=== PATIENT | female | born 1960 | race Caucasian/White ===

== ENCOUNTER → 2020-05-08 | Outpatient (CLI) | payer OTHER ==
--- NOTE | 2020-05-09 14:29 | MM ---
Reason for exam: screening (asymptomatic). Last mammogram was performed 4 years and 4 months ago. History: Patient is postmenopausal. Family history of premenopausal breast cancer in mother. Benign ultrasound-guided core biopsy of the left breast, December 15, 2001. Core biopsy of the left breast. Physical Findings: A clinical breast exam by your physician is recommended on an annual basis and results should be correlated with mammographic findings. MG Screening Mammo w CAD Bilateral CC and MLO view(s) were taken. Prior study comparison: January 20, 2016, bilateral MG screening mammo w CAD. April 23, 2013, bilateral digital screening mammo w/CAD. The breast tissue is extremely dense which could obscure a lesion on mammography. There is no discrete abnormality. No significant changes when compared with prior studies. ASSESSMENT: Negative, BI-RAD 1 RECOMMENDATION: Routine screening mammogram of both breasts in 1 year.
== END | disposition home or self-care (01) ==
LOC: RADMAMWWP 10:12
PROVIDERS: ATTEND Family Medicine
DX: Z12.31 Encounter for screening mammogram for malignant neoplasm of breast (principal)
CPT/HCPCS: 77067

== ENCOUNTER → 2023-02-09 | Outpatient (CLI) | payer BC ==
--- NOTE | 2023-02-09 18:41 | BD ---
EXAMINATION TYPE: Axial Bone Density DATE OF EXAM: 02/09/2023 CLINICAL HISTORY: 62 years old Female. ICD-10 CODE: Z13.820 SCREEN FOR OSTEOPOROSIS Height: 5 ft 7 1/2 in Weight: FRAX RISK QUESTIONS: Alcohol (3 or more units per day): no Family History (Parent hip fracture): no Glucocorticoids (More than 3mos): no (Ex: prednisone, prednisolone, methylprednisolone, dexamethasone, and hydrocortisone). History of Fracture in Adulthood: no Secondary Osteoporosis: 1. Type 1 Diabetes: no 2. Hyperthyroidism: no 3. Menopause before 45: no 4. Malnutrition: no 5. Chronic liver disease: no Rheumatoid Arthritis: no Current Tobacco Use: no RISK FACTORS HISTORY OF: Surgery to Spine/Hip(right/left)/Wrist (right/left): no Family History of Osteoporosis: no Active: yes Diet low in dairy products/other sources of calcium: no Postmenopausal woman: yes Take estrogen and/or progesterone medications: no Lost more than 2 inches in height since high school: Frequent falls: no Poor Health: no Hyperparathyroidism: no Adrenal Insufficiency: chronic hematuria MEDICATIONS: Additional Medications: none Additional History: EXAM MEASUREMENTS: Bone mineral densitometry was performed using the [employer]. Bone mineral density as measured about the Lumbar spine is: ----- L1-L4(G/cm2): 1.443 T Score Values are as follows: ----- L1: 1.0 ----- L2: 2.0 ----- L3: 3.1 ----- L4: 2.4 ----- L1-L4: 2.2 Z Score Values are as follows: ----- L1: 2.4 ----- L2: 3.4 ----- L3: 4.5 ----- L4: 3.8 ----- L1-L4: 3.6 baseline Bone mineral density about the R hip (g/cm2): 1.156 Bone mineral density about the L hip (g/cm2): 1.044 T Score values are as follows: -----R Neck: 0.8 -----L Neck: 0.0 -----R Total: 0.4 -----L Total: -0.4 Z Score values are as follows: -----R Neck: 2.2 -----L Neck: 1.4 -----R Total: 1.5 -----L Total: 0.7 baseline FRAX%s: The graph provided illustrates a 6.2 % chance for a major osteoporotic fx and a 0.2 % chance for the hips probability for fx in 10 years time. IMPRESSION: Normal (Values between +1 and -1 indicate normal bone mass). Consider repeating this study in 5 year s or sooner if there is some new clinical indication. NOTE: T-SCORE=SD OF THE YOUNG ADULT MEAN.
--- NOTE | 2023-02-10 06:43 | MM ---
Reason for Exam: Screening (asymptomatic). Last mammogram was performed 2 year(s) and 10 month(s) ago. Patient History: Menarche at age 10. Postmenopausal. Core Biopsy on the Left side. 12/15/2001, Benign Ultrasound-Guided Core Biopsy on the left side. Mother had breast cancer. Risk Values: Denise 5 year model risk: 4.5%. NCI Lifetime model risk: 17.1%. Prior Study Comparison: 04/23/2013 Bilateral Screening Mammogram, [facility]. 01/20/2016 Bilateral Screening Mammogram, [facility]. 05/08/2020 Bilateral Screening Mammogram, [facility]. Tissue Density: The breast tissue is heterogeneously dense. This may lower the sensitivity of mammography. Findings: Analyzed By CAD. There is no suspicious group of microcalcifications or new suspicious mass in either breast. Overall Assessment: Negative, BI-RAD 1 Management: Screening Mammogram of both breasts in 1 year. Some advised bilateral breast ultrasound surveillance in patients with background dense tissue. Patient should continue monthly self-breast exams. A clinical breast exam by your physician is recommended on an annual basis. This exam should not preclude additional follow-up of suspicious palpable abnormalities. Note on Denise scores and lifetime risk: 1. A Denise score greater than 3% is considered moderate risk. If this is the case, consider specialist referral to assess eligibility for a risk reducing agent. 2. If overall lifetime risk for the development of breast cancer is 20% or higher, the patient may qualify for future screening with alternating mammogram and breast MRI. Electronically signed and approved by: Rudolph Arias M.D.
== END | disposition home or self-care (01) ==
LOC: RADMAMWWP 07:39
PROVIDERS: ATTEND Family Medicine
DX: Z12.31 Encounter for screening mammogram for malignant neoplasm of breast (principal); Z13.820 Encounter for screening for osteoporosis; Z78.0 Asymptomatic menopausal state; Z80.3 Family history of malignant neoplasm of breast
CPT/HCPCS: 77063; 77067; 77080

== ENCOUNTER → 2024-01-16 | Outpatient (CLI) | payer MEDICARE, OTHER ==
--- NOTE | 2024-01-16 11:07 | MR ---
EXAMINATION TYPE: MR lumbar spine wo con DATE OF EXAM: 01/16/2024 COMPARISON: NONE HISTORY: Left groin pain into left leg and toes TECHNIQUE: T1 and T2 axial and sagittal images of the lumbar spine are submitted. FINDINGS: There is no abnormal signal seen within the visualized spinal cord or paraspinal soft tissu es. Multiple gallstones. Tiny Tarlov cyst at S2 level. At L1-2 there is mild disc desiccation and degenerative disc disease. Mild hypertrophy of the facet j oints. No disc herniation or canal stenosis. No foraminal or At L2-3 there is mild circumferential disc bulging. Mild disc desiccation and degenerative disc disea se. Mild hypertrophy of the facet joints. Disc bulging is slightly greater laterally to lie mild left foraminal approach. At L3-4 there is a moderate to severe degenerative disc disease with more advanced facet arthropathy greater on the left. Neural foramina is patent and the right and there is moderate encroachment on th e left. Mild circumferential disc bulging greater laterally to the left. No discrete herniation. At L4-5 there is mild disc desiccation and facet arthropathy. No canal stenosis or focal herniation. Neural foramina patent bilaterally. At L5-S1 there is mild disc desiccation and facet arthropathy. No canal stenosis or focal herniation. Neural foramina patent bilaterally. IMPRESSION: 1. Scoliosis with multilevel degenerative disc disease most marked at levels L3-L4. 2. No discrete herniation or canal stenosis. Mild left foraminal encroachment at L2-3 and L3-4 due to circumferential disc bulging greater laterally to the left. Facet arthropathy contributes to foramin al encroachment. 3. Cholelithiasis.
== END | disposition home or self-care (01) ==
LOC: RADMRIMAIN 09:13
PROVIDERS: ATTEND Family Medicine
DX: M51.36 Other intervertebral disc degeneration, lumbar region (principal); M47.816 Spondylosis without myelopathy or radiculopathy, lumbar region; K80.20 Calculus of gallbladder without cholecystitis without obstruction; M41.9 Scoliosis, unspecified
CPT/HCPCS: 72148

== ENCOUNTER → 2024-01-17 | Outpatient (CLI) | payer MEDICARE, OTHER ==
--- NOTE | 2024-01-17 19:03 | US ---
EXAMINATION TYPE: US groin LT DATE OF EXAM: 01/17/2024 COMPARISON: NONE CLINICAL INDICATION: Female, 63 years old with history of R10.2 PELVI PAIN; pain left groin. TECHNIQUE: Grayscale imaging in the left groin. FINDINGS: Scanned area of pain no abnormalities seen. No organizing fluid collection or mass. No lym phadenopathy identified. IMPRESSION: No abnormality in the left groin.
--- NOTE | 2024-01-17 19:12 | US ---
EXAMINATION TYPE: US pelvis complete transvag DATE OF EXAM: 01/17/2024 COMPARISON: NONE CLINICAL INDICATION: Female, 63 years old with history of R10.2 PELVIC PAIN; pain TECHNIQUE: Transvaginal (TV) and Transabdominal (TA) . Transabdominal sonographic images of the pel vis were acquired. Transvaginal sonographic images were medically necessary to better assess the fol lowing anatomy: EXAM MEASUREMENTS: Uterus: 6.0 x 2.4 x 4.4 cm Endometrial Stripe: 0.4 cm Right Ovary: 4.7 x 2.0 x 2.5 cm Left Ovary: 3.2 x 1.7 x 3.0 cm 1. Uterus: Anteverted wnl 2. Endometrium: wnl 3. Right Ovary: Multiple follicles seen 4. Left Ovary: Multiple follicles seen. 5. Bilateral Adnexa: wnl 6. Posterior cul-de-sac: wnl IMPRESSION: 1. No evidence for acute process. 2. Endometrium within normal limits for thickness.
== END | disposition home or self-care (01) ==
LOC: RADUSWWP 12:20
PROVIDERS: ATTEND Family Medicine
DX: R10.2 Pelvic and perineal pain (principal); M54.16 Radiculopathy, lumbar region
CPT/HCPCS: 76830; 76856

== ENCOUNTER → 2024-03-12 | Outpatient (CLI) | payer MEDICARE, OTHER ==
--- NOTE | 2024-03-12 18:59 | MM ---
Reason for Exam: Screening (asymptomatic). Last mammogram was performed 1 year(s) and 1 month(s) ago. Patient History: Menarche at age 10. Postmenopausal. Core Biopsy on the Left side. 12/15/2001, Benign Ultrasound-Guided Core Biopsy on the left side. Mother had breast cancer. Risk Values: Denise 5 year model risk: 4.6%. NCI Lifetime model risk: 16.5%. Prior Study Comparison: 01/20/2016 Bilateral Screening Mammogram, [facility]. 05/08/2020 Bilateral Screening Mammogram, [facility]. 02/09/2023 Bilateral MG 3D screening mammo w/cad, [facility]. Tissue Density: The breasts are extremely dense, which lowers the sensitivity of mammography. Findings: Analyzed By CAD. Possible obscured nodularity superior left MLO view middle depth for which further evaluation is recommended. Otherwise, no significant change. Overall Assessment: Incomplete: need additional imaging evaluation, BI-RAD 0 Management: Special View Mammogram of the left breast. Diagnostic Breast Ultrasound of the left breast. . [facility] will attempt to contact patient to return for supplemental views and ultrasound if indicated. Electronically signed and approved by: Jeremy Sosa M.D. Radiologist
== END | disposition home or self-care (01) ==
LOC: RADMAMWWP 08:14
PROVIDERS: ATTEND Family Medicine
DX: Z12.31 Encounter for screening mammogram for malignant neoplasm of breast (principal); Z80.3 Family history of malignant neoplasm of breast; Z78.0 Asymptomatic menopausal state
CPT/HCPCS: 77063; 77067

== ENCOUNTER → 2024-03-15 | Outpatient (CLI) | payer MEDICARE, OTHER ==
--- NOTE | 2024-03-15 14:46 | MM ---
Reason for Exam: Additional evaluation requested from abnormal screening. Last screening mammogram was performed less than 1 month ago. Patient History: Menarche at age 10. Postmenopausal. Core Biopsy on the Left side. 12/15/2001, Benign Ultrasound-Guided Core Biopsy on the left side. Mother had breast cancer. Risk Values: Denise 5 year model risk: 4.6%. NCI Lifetime model risk: 16.5%. Prior Study Comparison: 05/08/2020 Bilateral Screening Mammogram, [facility]. 02/09/2023 Bilateral MG 3D screening mammo w/cad, [facility]. 03/12/2024 Bilateral MG 3D screening mammo w/cad, [facility]. Tissue Density: Left: The breasts are extremely dense, which lowers the sensitivity of mammography. Findings: Analyzed By CAD. No persisting abnormality in the superior aspect of the left breast. Findings compatible with benign superimposition shadow. Overall Assessment: Benign, BI-RAD 2 Management: Screening Mammogram of both breasts in 1 year. See note below in regards to patient's increased 5 year Denise score. Results were given to the patient verbally at the time of exam. Patient should continue monthly self-breast exams. A clinical breast exam by your physician is recommended on an annual basis. This exam should not preclude additional follow-up of suspicious palpable abnormalities. Note on Denise scores and lifetime risk: 1. A Denise score greater than 3% is considered moderate risk. If this is the case, consider specialist referral to assess eligibility for a risk reducing agent. 2. If overall lifetime risk for the development of breast cancer is 20% or higher, the patient may qualify for future screening with alternating mammogram and breast MRI. Electronically signed and approved by: Jeremy Sosa M.D. Radiologist
== END | disposition home or self-care (01) ==
LOC: RADMAMWWP 14:14
PROVIDERS: ATTEND Family Medicine
DX: R92.342 Mammographic extreme density, left breast (principal); Z78.0 Asymptomatic menopausal state; Z80.3 Family history of malignant neoplasm of breast
CPT/HCPCS: 77065; G0279; 77061